=== PATIENT | male | born 1990 | race Asian ===

== ENCOUNTER 2021-05-07 08:57 | Emergency (ER) | payer OTHER ==
[~2021-05-07] VITALS: Ht 172.7 cm; Wt 81.6 kg
[2021-05-07 08:57] VITALS: BP 127/76; TEMP 97.7
== END 2021-05-07 09:54 ==
LOC: ED 08:57
DX: M79.18 Myalgia, other site (principal); R46.89 Other symptoms and signs involving appearance and behavior; V47.5XXA Car driver injured in collision with fixed or stationary object in traffic accident, initial encounter; Y35.893A Legal intervention involving other specified means, suspect injured, initial encounter; Y92.89 Other specified places as the place of occurrence of the external cause
CPT/HCPCS: 96372; 99283; J1885